=== PATIENT | male | born 1960 | race Caucasian/White ===

== ENCOUNTER 2016-10-03 21:07 | Emergency (ER) | payer OTHER ==
[2016-10-03] MEDS ORDERED: DIAZEPAM 5 MG TABLET ONE (22:27)
[2016-10-03] MEDS ORDERED: IBUPROFEN 800 MG TABLET ONE (22:27)
[2016-10-03] MEDS ORDERED: HYDROCODONE/ACETAMINOPHEN 5/325MG TABLET ONE (22:27)
== END 2016-10-03 22:36 | disposition home or self-care (01) ==
LOC: ED 21:07
DX: M54.10 Radiculopathy, site unspecified (principal); F17.210 Nicotine dependence, cigarettes, uncomplicated